=== PATIENT | female | born 1960 | race Caucasian/White ===

== ENCOUNTER → 2017-01-06 | Outpatient (CLI) | payer OTHER ==
--- NOTE | 2017-01-06 18:25 | DX ---
Right Hand - Three Views Indication: Pain and lump at base of thumb. Recent trauma. Technique: AP, oblique, and lateral views. Comparison: None. Findings: The trapezium at the base of the 1st metacarpal is either surgically absent or completely eroded/resorbed. The base of the 1st metacarpal articulates with the radial margin of the trapezoid bone. Minimal erosive arthropathy is present at the joint articulation. The distal navicular bone h as minimal erosive arthropathy at the articulation with the trapezoid (best demonstrated on the navic ular view). The metacarpal and radiocarpal joint spaces are relatively well preserved. Minimal oste oarthritis involves the distal interphalangeal joints. Impression: 1. No fracture or bone lesion. 2. Suspect surgically absent trapezium bone rather than bony resorption. 3. Minimal mixed erosive and productive arthropathy at the base of the 1st metacarpal raises the pos sibility of erosive osteoarthritis. 4. No involvement of the metacarpophalangeal joints to suggest rheumatoid arthropathy.
== END ==
LOC: CIMAGING 14:32
PROVIDERS: ATTEND Internal Medicine
DX: M79.644 Pain in right finger(s) (principal)
CPT/HCPCS: 73130-PO

== ENCOUNTER → 2017-07-12 | Outpatient (CLI) | payer OTHER | LOC: FIMAGING 17:06 | PROVIDERS: ATTEND Internal Medicine | DX: R05 Cough (principal) ==

== ENCOUNTER → 2017-07-28 | Outpatient (CLI) | payer OTHER | LOC: FIMAGING 08:14 | PROVIDERS: ATTEND Podiatrist | DX: M76.62 Achilles tendinitis, left leg (principal) ==

== ENCOUNTER 2018-11-17 11:31 | Inpatient (IN) | payer OTHER ==
[2018-11-17] MEDS ORDERED: NS 1,000 ML IV ONE (12:02)
[2018-11-17] MEDS ORDERED: PANTOPRAZOLE SODIUM 40 MG VIAL IVP ONE (12:02)
[2018-11-17] MEDS ORDERED: FAMOTIDINE 20 MG/NACL 50 ML IV ONE (12:02)
--- NOTE | 2018-11-17 12:18 | EDPHY ---
H & P Stated Complaint: Black tarry stool starting yesterday Time Seen by Provider: 11/17/18 11:46 HPI/ROS: CHIEF COMPLAINT: "I have blood in my stool" HISTORY OF PRESENT ILLNESS: 58-year-old female with no anticoagulant use, postoperative day 12 post left rotator cuff surgery [facility], no history of chronic NSAID use, has been experiencing black tarry stool for the past 48 hr. No abdominal pain. No lightheadedness. No syncope or near syncope. No back or flank pain. No postoperative DVT prophylaxis. Patient has been on numerous rounds of antibiotics recently for upper respiratory infection and Bartholin cyst. No current antibiotic treatment. History of esophageal reflux. No chronic PPI use. PRIMARY CARE PROVIDER: REVIEW OF SYSTEMS: 10 systems reviewed and negative with the exception of the elements mentioned in the history of present illness PAST MEDICAL & SURGICAL HISTORY: Postoperative day 12 post left rotator cuff surgery [facility] SOCIAL HISTORY: PHYSICAL EXAM (Prior to examination, patient consented to physical exam, hands were washed and my usual and customary physical exam procedures followed) 1) GENERAL: Well-developed, well-nourished, alert and oriented. Appears to be in no acute distress. 2) HEAD: Normocephalic, atraumatic 3) HEENT: Pupils equal, round, reactive to light bilaterally. Sclera anicteric. Nasopharynx, oropharynx, clear, no lesions. Dry mucous membranes. 4) NECK: Full range of motion, no meningeal signs. 5) LUNGS: Clear auscultation bilaterally, no wheezes, no rhonchi, no retractions. 6) HEART: Regular rate and rhythm, no murmur, no heave, no gallop. 7) ABDOMEN: No guarding, no rebound, no focal tenderness, negative McBurney's, negative Reina's, negative Rovsing's, negative peritoneal sign. Patient is a stool sample at bedside which is frankly melanic 8) MUSCULOSKELETAL: Moving all extremities, no focal areas of tenderness, no obvious trauma. No peripheral edema or discoloration. 9) BACK: No CVA tenderness, no midline vertebral tenderness, no fluctuance, no step-off, no obvious trauma, no visual or palpable abnormality. 10) SKIN: No rash, no petechiae. [11) DIFFERENTIAL DIAGNOSIS: In no particular order including but limited to upper GI bleed, lower GI bleed, factitious GI bleed - Personal History Tetanus Vaccine Date: within 10 years - Medical/Surgical History Hx Asthma: No Hx Chronic Respiratory Disease: No Hx Diabetes: No Hx Cardiac Disease: No Hx Renal Disease: No Hx Cirrhosis: No Hx Alcoholism: No Hx HIV/AIDS: No Hx Splenectomy or Spleen Trauma: No Other PMH: anxiety,hyperlipidemia, fibromyalgia, breast reduction surgery, osteoporosis, anh cyst removed 09/13 with cellulitus, R shoulder surgery - Social History Smoking Status: Never smoked Constitutional: Initial Vital Signs Temperature (C) 36.7 C 11/17/18 11:37 Heart Rate 91 11/17/18 11:37 Respiratory Rate 20 11/17/18 11:37 Blood Pressure 127/83 H 11/17/18 11:37 O2 Sat (%) 100 11/17/18 11:37 O2 Delivery Mode Room Air Allergies/Adverse Reactions: Cephalosporins Allergy (Intermediate, Verified 08/06/16 12:51) Rash clindamycin Allergy (Intermediate, Verified 08/06/16 12:51) Itching nitrofurantoin macrocrystalline [From Macrodantin] Allergy (Intermediate, Verified 08/06/16 12:51) Rash Sulfa (Sulfonamide Antibiotics) Allergy (Intermediate, Verified 08/06/16 12:51) Rash Home Medications: Medication Instructions Recorded Acetaminophen [Tylenol ES 500 mg 1,000 mg PO Q6 11/17/18 (*)] Cholecalciferol Vit D3 [Vitamin D3 1,000 units PO HS 11/17/18 (*)] Citalopram [CeleXA] 20 mg PO HS 11/17/18 Herbals/Supplements -Info Only 1 ea PO HS 11/17/18 Multivitamins [Multivitamin (*)] 1 each PO HS 11/17/18 Promethazine HCl [Phenergan 25mg 25 mg PO HS 11/17/18 (*)] Ranitidine HCl 150 mg PO BID 11/17/18 Rosuvastatin Calcium [Rosuvastatin 10 mg PO HS 11/17/18 Calcium] Medical Decision Making ED Course/Re-evaluation: 12:20 p.m.: Discussed case with Dr. Elliott Ferguson in the ER, secondary supine position. Patient is hemodynamically stable. Will plan on admission for GI bleed. 12:30 p.m.: Consultation Dr. Bills will admit patient for GI bleed - Data Points Laboratory Results: Laboratory Results 11/17/18 12:00 11/17/18 12:00 11/17/18 11/17/18 11/17/18 12:00 12:00 12:00 WBC RBC Hgb Hct MCV MCH MCHC RDW Plt Count MPV Neut % (Auto) Lymph % (Auto) [place] % (Auto) Eos % (Auto) Baso % (Auto) Nucleat RBC Rel Count Absolute Neuts (auto) Absolute Lymphs (auto) Absolute Monos (auto) Absolute Eos (auto) Absolute Basos (auto) Absolute Nucleated RBC Immature Gran % Immature Gran # PT INR APTT Sodium 138 mEq/L mEq/L (135-145) Potassium 4.5 mEq/L mEq/L (3.5-5.2) Chloride 108 mEq/L mEq/L (97-110) Carbon Dioxide 21 mEq/l L mEq/l (22-31) Anion Gap 9 mEq/L mEq/L (6-14) BUN 26 mg/dL H mg/dL (7-23) Creatinine 0.6 mg/dL mg/dL (0.6-1.0) Estimated GFR > 60 Glucose 105 mg/dL H mg/dL (70-100) Calcium 9.5 mg/dL mg/dL (8.5-10.4) Total Bilirubin 0.3 mg/dL mg/dL (0.1-1.4) Conjugated Bilirubin 0.1 mg/dL mg/dL (0.0-0.5) Unconjugated Bilirubin 0.2 mg/dL mg/dL (0.0-1.1) AST 17 IU/L IU/L (14-46) ALT 23 IU/L IU/L (9-52) Alkaline Phosphatase 73 IU/L IU/L (38-126) Total Protein 6.8 g/dL g/dL (6.3-8.2) Albumin 4.1 g/dL g/dL (3.5-5.0) Lipase 168 IU/L IU/L (23-300) Stool Occult Bld Scrn POSITIVE H (NEGATIVE) Patient ABO/Rh A NEGATIVE Antibody Screen NEGATIVE 11/17/18 11/17/18 12:00 12:00 WBC 12.47 10^3/uL H 10^3/uL (3.80-9.50) RBC 4.10 10^6/uL L 10^6/uL (4.18-5.33) Hgb 12.1 g/dL L g/dL (12.6-16.3) Hct 35.6 % L % (38.0-47.0) MCV 86.8 fL fL (81.5-99.8) MCH 29.5 pg pg (27.9-34.1) MCHC 34.0 g/dL g/dL (32.4-36.7) RDW 12.6 % % (11.5-15.2) Plt Count 401 10^3/uL H 10^3/uL (150-400) MPV 10.4 fL fL (8.7-11.7) Neut % (Auto) 76.2 % H % (39.3-74.2) Lymph % (Auto) 14.8 % L % (15.0-45.0) [place] % (Auto) 7.1 % % (4.5-13.0) Eos % (Auto) 1.2 % % (0.6-7.6) Baso % (Auto) 0.2 % L % (0.3-1.7) Nucleat RBC Rel Count 0.0 % % (0.0-0.2) Absolute Neuts (auto) 9.50 10^3/uL H 10^3/uL (1.70-6.50) Absolute Lymphs (auto) 1.85 10^3/uL 10^3/uL (1.00-3.00) Absolute Monos (auto) 0.89 10^3/uL H 10^3/uL (0.30-0.80) Absolute Eos (auto) 0.15 10^3/uL 10^3/uL (0.03-0.40) Absolute Basos (auto) 0.02 10^3/uL 10^3/uL (0.02-0.10) Absolute Nucleated RBC 0.00 10^3/uL 10^3/uL (0-0.01) Immature Gran % 0.5 % % (0.0-1.1) Immature Gran # 0.06 10^3/uL 10^3/uL (0.00-0.10) PT 12.3 SEC SEC (12.0-15.0) INR 0.89 (0.83-1.16) APTT 25.9 SEC SEC (23.0-38.0) Sodium Potassium Chloride Carbon Dioxide Anion Gap BUN Creatinine Estimated GFR Glucose Calcium Total Bilirubin Conjugated Bilirubin Unconjugated Bilirubin AST ALT Alkaline Phosphatase Total Protein Albumin Lipase Stool Occult Bld Scrn Patient ABO/Rh Antibody Screen Medications Given: Sodium Chloride (Ns) 1,000 mls @ 100 mls/hr IV CONT MARIUM Stop: 05/16/19 12:59 Last Admin: 11/17/18 14:03 Dose: 1,000 mls Discontinued Medications Sodium Chloride (Ns) 1,000 mls @ 0 mls/hr IV EDNOW ONE; Wide Open PRN Reason: Protocol Stop: 11/17/18 12:03 Last Admin: 11/17/18 12:11 Dose: 1,000 mls Famotidine/Sodium Chloride (Pepcid 20 Mg (Premix)) 50 mls @ 200 mls/hr IV EDNOW ONE Stop: 11/17/18 12:16 Last Admin: 11/17/18 12:11 Dose: Not Given Pantoprazole Sodium (Protonix) 80 mg IVP EDNOW ONE Stop: 11/17/18 12:03 Last Admin: 11/17/18 12:11 Dose: 80 mg Departure - Departure Disposition: [facility] Acute
[2018-11-17 12:20] LABS: PLATELET COUNT 401 10^3/uL (150-400)
[2018-11-17 12:28] LABS: INR 0.89 (0.83-1.16); PROTIME(PATIENT) 12.3 SEC (12.0-15.0)
[2018-11-17] MEDS ORDERED: ONDANSETRON DISINTEGRATING 4 MG TAB PO PRN (12:59)
[2018-11-17] MEDS ORDERED: ACETAMINOPHEN 325 MG TAB PO PRN (12:59)
[2018-11-17] MEDS ORDERED: ONDANSETRON 4 MG/2 ML VIAL IVP PRN (12:59)
[2018-11-17] MEDS: NS 1,000 ML IV SCH (14:03)
--- NOTE | 2018-11-17 14:27 | GHP ---
DATE OF ADMISSION: 11/17/2018 CHIEF COMPLAINT: Black tarry stools. HISTORY OF PRESENT ILLNESS: 58-year-old female with a history of IBS presents with 2 episodes of koki ck tarry stools. One was last night. She presented to the ED today, when had another episode. She had plans for an outpatient upper and lower endoscopy with Dr. Connell due to irritable bowel syndrome a s well as a small amount of blood in her stool that was likely associated with hemorrhoids. Notably, she had a shoulder surgery about 10 days ago, although she has not taken significant NSAIDs since . She tells me she took 1 dose of ibuprofen; otherwise, she has been taking Tylenol. She did have a nerve block in for a few days. She has had a few rounds of antibiotics recently which have given her somewhat significant diarrhea. Recently, her bowels have been almost back to normal. Although a fter surgery, she had some perioperative nausea and vomiting, she did not have any hematemesis with t his and she has not vomited for 3 or 4 days now. Her last upper and lower endoscopies were about 18 years ago. She was never told that she had ulcers. She did have some polyps in her colon. PAST MEDICAL/SURGICAL HISTORY: 1. Hyperlipidemia. 2. Depression. 3. IBS. 4. GERD, for which she takes ranitidine. MEDICATIONS: Please see medication reconciliation. ALLERGIES: Cephalosporins, clindamycin, Macrobid, sulfa. SOCIAL HISTORY: She drinks alcohol occasionally. She does not smoke. FAMILY HISTORY: Notable for IBS in her brother. REVIEW OF SYSTEMS: A 10-point review of systems is conducted and is negative except per HPI. PHYSICAL EXAM: VITAL SIGNS: Blood pressure 109/78, heart rate 74, respiration rate 18, saturating 9 9% on room air, temperature 36.7. GENERAL: The patient is a pleasant female who is resting comforta analy in bed. She appears somewhat anxious. HEENT: Shows her to be normocephalic, atraumatic. CARDI OVASCULAR: Shows a regular rate and rhythm. No murmurs, rubs or gallops. PULMONARY: Shows lungs c lear to auscultation bilaterally. ABDOMEN: Soft, nontender, nondistended. SKIN: Shows no rash. G U: Shows no Alcaraz. NEUROLOGIC: Shows her to be alert and oriented x3. She is moving all extremitie s. PSYCHIATRIC: Shows a normal mood and affect. MUSCULOSKELETAL: Shows her left arm to be in a sl ing. LABS: White count is 12.4, hemoglobin is 12, platelets are 400. INR 0.89. Bicarb is 21, BUN is 26 with creatinine of 0.6. LFTs are normal. Her FOBT is positive. DATA: Discussed with Bharat Fabian as well as Dr. Connell. Will admit to med/surg. Plan on upper endos copy tomorrow IMPRESSION AND PLAN: 1. Upper gastrointestinal bleed: She has had melena. She is hemodynamically stable. Will provide her with intravenous Protonix. I have discussed with Dr. Connell, will plan on an esophagogastroduodeno scopy tomorrow. Give her clears now, make her nothing by mouth after midnight. This is a high-risk diagnosis. 2. Recent shoulder surgery: She is in a sling. Continue this. 3. Hyperlipidemia: Statin. 4. Depression: Celexa. 5. Irritable bowel syndrome. /[id number]/MODL
[2018-11-17] MEDS: ACETAMINOPHEN 500 MG TAB PO SCH ×2 (17:50→20:15)
[2018-11-17] MEDS ORDERED: PEG 3350/NA SULF,BICARB,CL/KCL (GAVILYTE-G) 4000 ML BTL PO ONE (19:24)
[2018-11-17] MEDS: PROMETHAZINE HCL 25 MG TAB PO SCH (19:57)
[2018-11-17] MEDS: PANTOPRAZOLE SODIUM 40 MG VIAL IVP SCH (20:00)
[2018-11-17] MEDS: ROSUVASTATIN CALCIUM 10 MG TAB PO SCH (20:04)
[2018-11-17] MEDS: CITALOPRAM 20 MG TAB PO SCH (20:04)
[2018-11-17] MEDS ORDERED: PANTOPRAZOLE SODIUM 40 MG VIAL IVP SCH (21:00)
[2018-11-18] MEDS: PANTOPRAZOLE SODIUM 40 MG VIAL IVP SCH ×2 (00:57→06:54)
[2018-11-18] MEDS: NS 1,000 ML IV SCH (01:02)
[2018-11-18 05:18] LABS: PLATELET COUNT 304 10^3/uL (150-400)
[2018-11-18] MEDS ORDERED: LR 1,000 ML IV ONE (08:28)
[2018-11-18] MEDS ORDERED: MIDAZOLAM 2 MG/2 ML VIAL ONE ×3 (08:46→09:51)
[2018-11-18] MEDS ORDERED: fentaNYL 100 MCG/2 ML INJ ONE ×2 (08:46→09:52)
--- NOTE | 2018-11-18 09:15 | PDPROPOC ---
Sedation Plan of Care Sedation Plan of Care: mental status noted ASA Classification: ASA 2 Planned drugs: fentanyl, midazolam Mallampati Score: Class 1 Mallampati Reference Image: Patient passed 3-3-2 rule?: Yes
--- NOTE | 2018-11-18 10:42 | GIREPORT ---
[facility] - Endoscopy Department Patient Name: Isabell Ta Procedure Date: 11/18/2018 8:49 AM Patient Type: Inpatient Attending MD/ ER Physician: Quinton Connell MD Procedure: Upper GI endoscopy Indications: Note dictated, consult appreciated. Lucinda. Providers: Quinton Connell MD, FACG Referring MD: [facility] Hospitalist service; Zaida Samuel DO Medicines: Fentanyl 250 micrograms IV, Midazolam 9 mg IV Complications: No immediate complications. Description of Procedure: After obtaining informed consent, the endoscope was passed under direct vision. Throughout the procedure, the patient's blood pressure, pulse, and oxygen saturations were monitored continuously. The Endoscope was intro duced through the mouth, and advanced to the second part of duodenum. Findings: The esophagus was normal. The entire examined stomach was normal. Biopsies were taken with a cold forceps for Helicobacter pylori testing from the antrum and cardia. One non-bleeding superficial duodenal ulcer with a small protuberance w as found in the duodenal bulb. The lesion was 13 mm in largest dimension, with some "heaped-up" nodular tissue. Coagulation for bleeding prevention us ing bipolar probe was successful. One ligature was successfully placed. The re was no bleeding at the end of the procedure. Biopsies were taken with a cold forceps for histology from the surrounding nodular tissue. Estimated Blood Loss: none. Post Op Diagnosis: - Duodenal ulcer, as above. No further bleeding, and with the above treatment, no risk of rebleed. Overall, suspect either a "stress" ulcer from recent surgery, etc., or H. pylori. Recommendation: - feed - buffcap IV - less frequent H/Hs - change PPI to oral bid - if stable tomorrow, as I suspect, ok to d/c home. Upon discharge, recommend: a) PPI daily for eight weeks b) iron replacement therapy x 8 weeks c) f/u PCP I will sign off; I will f/u on bxs, H. pylori. Otherwise, please call i f we can be of further help [phone]). Thank you for allowing me to help in the management of this patient. Attending Participation: I personally performed the entire procedure. Becki Alcantara MD Quinton Connell MD 11/18/2018 10:41:59 AM This report has been signed electronicallyPeter MD Becki Number of Addenda: 0 Note Initiated On: 11/18/2018 8:49 AM [email or web address]
--- NOTE | 2018-11-18 10:45 | GIREPORT ---
[facility] Surgical Services - Endoscopy Department Patient Name: Isabell Ta Procedure Date: 11/18/2018 8:49 AM Patient Type: Inpatient Attending MD/ ER Physician: Quinton Connell MD Procedure: Colonoscopy Indications: Screening for colorectal malignant neoplasm Providers: Quinton Connell MD, [facility] Referring MD: Zaida Samuel DO Medicines: See the other procedure note for documentation of the administered medications Complications: No immediate complications. Description of Procedure: After obtaining informed consent, the scope was passed under direct vis ion. Throughout the procedure, the patient's blood pressure, pulse, and oxyg en saturations were monitored continuously. The Colonoscope was introduced through the anus and advanced to the terminal ileum. The terminal ileum was photographed. The quality of the bowel preparation was good. Findings: The terminal ileum contained one submucosal nodule, 9 mm in diameter. Biopsies were taken with a cold forceps for histology. The entire examined colon appeared normal. Estimated Blood Loss: Estimated blood loss: none. Post Op Diagnosis: - As above. Recommendation: - Pathology results pending. - Repeat colonoscopy in 10 years for screening purposes. - Thank you for allowing me to help in the management of this patient. Attending Participation: I personally performed the entire procedure. Becki Alcantara MD Quinton Connell MD 11/18/2018 10:45:05 AM This report has been signed electronicallyPeter MD Becki Number of Addenda: 0 Note Initiated On: 11/18/2018 8:49 AM Total Procedure Duration Time 0 hours 16 minutes 57 seconds [email or web address]
[2018-11-18] MEDS: PANTOPRAZOLE SODIUM 40 MG TAB PO SCH ×4 (11:23→22:00)
--- NOTE | 2018-11-18 11:31 | GCON ---
GASTROINTESTINAL INPATIENT CONSULTATION. DATE OF CONSULTATION: 11/18/2018 REFERRING PHYSICIAN: Dereck Bills MD HISTORY OF PRESENT ILLNESS: I was kindly requested to see the patient by Dr. Dereck Bills in consultation for chief complaint of melena. She is a 58- year-old white female who had 3 episodes of the above. She had shoulder surgery about 11 days ago, but states she only took 1 ibuprofen. She has been generally using Tylenol. She had a nerve block several days ago. After surgery , she did have some nausea and vomiting, but denies hematemesis. She does have a chronic history of "stomach churning." She denies heartburn. She is due for screening colonoscopy. She denies constipation, maroon stool, weight loss. PAST MEDICAL HISTORY: 1. As above. 2. Elevated lipids. 3. Depression. 4. Irritable bowel syndrome. Otherwise, noncontributory. INPATIENT MEDICATIONS: Include pantoprazole IV, statin, promethazine before bed , IV fluids, Celexa. ALLERGIES: Include cephalosporins, clindamycin, Macrobid, and sulfa. SOCIAL HISTORY: She drinks alcohol only occasionally. She is here with Roman, cell phone #[phone]. FAMILY HISTORY: Negative for similar bleeding. REVIEW OF SYSTEMS: Positive pertinent review of systems as per my HPI. Otherwise, complete review of systems is negative. PHYSICAL EXAM: CONSTITUTIONAL: Nontoxic-appearing. VITAL SIGNS: Stable. SKIN: Warm, dry. EYES: Pupils equal, round, reactive to light and accommodation. EARS/NOSE/MOUTH/Throat: Oropharynx without masses, moist mucosa. CARDIOVASCULAR: Normal S2, normal PMI. RESPIRATORY: Lungs clear to auscultation and percussion anteriorly. GASTROINTESTINAL: Nontender, soft. NEUROLOGIC: Grossly nonfocal. Cranial nerves grossly intact. PSYCHIATRIC: Orientation, insight appropriate. MUSCULOSKELETAL: Strength grossly normal throughout. Normal station. LABORATORY DATA: Normal coags. Hematocrit initially 35.6%, then 24.5%, then 28.9%, and now 26.1%. Normal platelet count. Normal CMP. Normal lipase. ASSESSMENT: Melena, with drop in hematocrit. I suspect an upper gastrointestinal source of bleeding. A right colonic source is possible, but less likely. With her more chronic symptoms of dyspepsia, Helicobacter pylori is possible. PLAN: 1. Urgent upper endoscopy, colonoscopy. Certainly with her elevated lipids, recent shoulder surgery, etc., she is at increased risk for these procedures; however, suspected benefits outweigh the risks, and I suspect she will do well. 2. Further management depending on the above. Thank you for allowing me to help in the care of this patient. /[id number]/MODL MTDD
--- NOTE | 2018-11-18 12:13 | HOSPPROG ---
Hospitalist Progress Note Assessment/Plan: # UGIB d/t duodenal ulcer s/p coagulation and ligature - PPI daily - biopsy pending # terminal ileum nodule - biopsy pending # ABLA - recheck hgb tonight and tomorrow am - Fe supplementation on dc # recent shoulder surgery - continue sling # insomnia - patient requesting trazodone; she requested an rx for home if this works, i deferred this today # depression - celexa # hld - statin # dvt ppx - SCDs Subjective: s/p EGD and colonoscopy; eating today Objective: Vital Signs Temp Pulse Resp BP Pulse Ox 36.7 C 84 16 136/74 H 96 11/18/18 10:55 11/18/18 10:55 11/18/18 10:55 11/18/18 10:55 11/18/18 10:55 Laboratory Results 11/18/18 04:13 11/18/18 04:30 11/17/18 11/18/18 11/19/18 05:59 05:59 05:59 Intake Total 1763 450 Balance 1763 450 PT 12.3 SEC (12.0-15.0) 11/17/18 12:00 INR 0.89 (0.83-1.16) 11/17/18 12:00 high risk with significant blood loss - Physical Exam Constitutional: no apparent distress, appears nourished Cardiovascular: regular rate and rhythym, no murmur, rub, or gallop Respiratory: no respiratory distress, no rales or rhonchi, clear to auscultation Gastrointestinal: normoactive bowel sounds, soft, non-tender abdomen, no palpable masses ICD10 Worksheet Patient Problems: Problems Problem Status Onset Duodenal ulcer Acute Duodenal ulcer Acute
[2018-11-18] MEDS: ACETAMINOPHEN 500 MG TAB PO SCH ×2 (12:40→17:53)
--- NOTE | 2018-11-18 13:34 | PDMN ---
Medical Necessity Medical necessity: Change to inpt as of 11/18/18 @ 12:14 per MD order and MCG M- 180, Gastrointestinal Bleeding, Upper, A-2 days. 58 y/o admitted w/upper GI bleed, EGD today showed duodenal ulcer s/p coagulation and ligature- bx pending , colonoscopy showed ileum nodule- bx pending. Upgraded to inpt for decreasing H &H (12.1, 35.6 yesterday and 8.9, 26.1 today) further monitoring med nec, high risk w/signif blood loss, est LOS>2MN for ongoing eval/management of above.
--- NOTE | 2018-11-18 15:53 | ASMTCMCOM ---
CM Note CM Note Notes: Case Management Chart Review for Discharge Support: Patient is 58 y/o female, presented to [facility] ED with 2 episodes of black tarry stools, admitted under observation. Pt underwent L rotator cuff surgery 12 days ago. Plan for endoscopy and colonoscopy today. CM to follow. D/C Plan: TBD, likely independent. Date Signed: 11/18/2018 03:52 PM Electronically Signed By:Celeste Grimaldo
[2018-11-18] MEDS ORDERED: traZODone 50 MG TAB PO SCH (21:00)
[2018-11-18] MEDS: CITALOPRAM 20 MG TAB PO SCH (22:00)
[2018-11-18] MEDS: ROSUVASTATIN CALCIUM 10 MG TAB PO SCH (22:00)
[2018-11-18] MEDS: PROMETHAZINE HCL 25 MG TAB PO SCH (22:01)
[2018-11-19] MEDS: ACETAMINOPHEN 500 MG TAB PO SCH ×2 (01:06→07:21)
[2018-11-19 07:27] VITALS: BP 120/73
[2018-11-19] MEDS: PANTOPRAZOLE SODIUM 40 MG TAB PO SCH (08:17)
[2018-11-19] MEDS ORDERED: SODIUM FERRIC GLUCONAT/SUCROSE 125 MG in NS 100 ML IV ONE (08:47)
--- NOTE | 2018-11-19 08:59 | HOSPPROG ---
Hospitalist Progress Note Assessment/Plan: 58 yo F w UGIB # UGIB d/t duodenal ulcer s/p coagulation and ligature - PPI daily - biopsy pending # terminal ileum nodule - biopsy pending # ABLA - recheck hgb tonight and tomorrow am - Fe supplementation on dc # recent shoulder surgery - continue sling # insomnia - patient requesting trazodone; she requested an rx for home if this works, i deferred this today # depression - celexa # hld - statin # dvt ppx - SCDs home today > 30 minutes Subjective: brown stool this AM. hct stable Objective: Vital Signs Temp Pulse Resp BP Pulse Ox 36.5 C 88 16 120/73 96 11/19/18 07:22 11/19/18 07:22 11/19/18 07:22 11/19/18 07:22 11/19/18 07:22 Laboratory Results 11/19/18 08:00 PT 12.3 SEC (12.0-15.0) 11/17/18 12:00 INR 0.89 (0.83-1.16) 11/17/18 12:00 - Physical Exam Constitutional: no apparent distress, appears nourished Eyes: PERRL, anicteric sclera Ears, Nose, Mouth, Throat: moist mucous membranes, hearing normal Cardiovascular: regular rate and rhythym, no murmur, rub, or gallop Respiratory: no respiratory distress, no rales or rhonchi Gastrointestinal: normoactive bowel sounds, soft, non-tender abdomen Genitourinary: No morillo in urethra Skin: warm, normal color Musculoskeletal: full muscle strength ICD10 Worksheet Patient Problems: Problems Problem Status Onset Duodenal ulcer Acute Duodenal ulcer Acute
--- NOTE | 2018-11-19 10:09 | GDS ---
DISCHARGE DIAGNOSES: 1. Upper gastrointestinal bleed secondary to duodenal ulcer. 2. Acute blood loss anemia. 3. Recent shoulder surgery. Please see admission history and physical by Dr. Allen Bills. Patient presented with melena. She i s status post coagulation ligature. Hematocrit stable at 9.9, it was 12 on presentation, her baselin e is 14. This is consistent with acute blood loss anemia. The patient is discharged home on b.i.d. PPI for 2 months, oral iron. She was given a prescription for trazodone if it helps her sleep which has been poor with her recent shoulder surgery. She received IV iron while here. /[id number]/MODL
--- NOTE | 2018-11-23 14:46 | PQFORM ---
PHYSICIAN QUERY FORM Needs Your Response This query form is being sent to you to assure this patient record is coded properly. Please respond to the question below: DEPUTY MANAGER QUESTION: Dr. Al, The diagnosis of Well-Differentiated Neuroendocrine Tumor (Carcinoid Tumor) is included in the Pathology Report dated 11/22/2018 ~ Would this be appropriate as an additional diagnosis on the discharge summary? Yes X No Other Clinically Undetermined Many thanks, MAYELIN Johns HIM/Coding Department INSTRUCTIONS FOR RESPONSE: Answer question by clicking on the "Edit Document" button. Move cursor to area below the stars. When complete, hit "Save." Click on the "Sign" button, then click "Sign" again. Type in your PIN and hit "Enter." MTDD
== END 2018-11-19 12:17 | disposition home or self-care (01) | DRG 378 ==
LOC: F3E 12:58 → OBSVTOIN 11-18 12:14
PROVIDERS: ADMIT Student in an Organized Health Care Education/Training Program; ATTEND Internal Medicine
DX: K26.0 Acute duodenal ulcer with hemorrhage (principal); D62 Acute posthemorrhagic anemia; C7A.012 Malignant carcinoid tumor of the ileum; Z98.890 Other specified postprocedural states; M85.819 Other specified disorders of bone density and structure, unspecified shoulder; K21.9 Gastro-esophageal reflux disease without esophagitis; E78.5 Hyperlipidemia, unspecified; M79.7 Fibromyalgia; F41.9 Anxiety disorder, unspecified; K58.9 Irritable bowel syndrome, unspecified; G47.00 Insomnia, unspecified; F32.9 Major depressive disorder, single episode, unspecified; Z86.010 Personal history of colon polyps
CPT/HCPCS: 96374; G0378; J2250; J2916; J3010

== ENCOUNTER 2019-01-08 10:49 | Emergency (ER) | payer OTHER ==
[2019-01-08] MEDS ORDERED: ONDANSETRON 4 MG/2 ML VIAL IVP ONE (11:46)
[2019-01-08] MEDS ORDERED: NS 1,000 ML IV ONE (11:46)
[2019-01-08] MEDS ORDERED: FAMOTIDINE 20 MG/NACL 50 ML IV ONE (11:46)
[2019-01-08 11:56] LABS: PLATELET COUNT 315 10^3/uL (150-400)
--- NOTE | 2019-01-08 13:42 | EDPHY ---
H & P Time Seen by Provider: 01/08/19 11:46 HPI/ROS: HPI Abdominal pain. 58-year-old female by private vehicle. She had a small carcinoid tumor removed by Dr. Sal Torres on Monday of last week. She presents to the emergency department with complaint continued abdominal discomfort, nausea, loose stools, an episode of nonbilious, nonbloody vomiting yesterday and what she describes as burp vomiting a small amount of gastric contents today. She otherwise has been on a soft diet and has been tolerating this well. She spoke with Dr. Sal Torres partner Dr. Tim and was told to come into the emergency department to be evaluated. At this time she denies any significant discomfort. ROS: Constitutional: No fever, no chills. No weakness. Eyes: No discharge. No changes in vision. ENT: No sore throat. No nasal congestion or rhinorrhea. Respiratory: No cough. No shortness of breath. Cardiac: No chest pain, no palpitations. Gastrointestinal: As above. Genitourinary: No hematuria. No dysuria or increased frequency with urination. Musculoskeletal: No back pain. No neck pain. No myalgias or arthralgias. Skin: No rashes. Neurological: No headache. No focal weakness or altered sensation. Past medical history: Anxiety, hyperlipidemia, fibromyalgia, breast reduction surgery, osteoporosis, right shoulder surgery. As above. Social history: Physical Exam: General Appearance: Alert, no distress. This patient is responding to questions appropriately and in full sentences. This patient appears well- hydrated and well-nourished. Eyes: Pupils equal and round no pallor or injection. No lid edema, erythema or injection. Respiratory: There are no retractions, lungs are clear to auscultation with good air movement bilaterally. Cardiovascular: Regular rate and rhythm. No murmur. Gastrointestinal: Abdomen is soft and nontender, no masses, bowel sounds normal. No focal tenderness at McBurney's point. No Reina sign. Her surgical incisions appear clean dry and intact and without evidence of infection. Neurological: Motor sensory function is grossly intact. Cranial nerves are normal. Gait is normal. Skin: Warm and dry, no rashes. Musculoskeletal: Neck is supple and nontender. Extremities are symmetrical. All joints range without pain or impingement. Psychiatric: No agitation. No depression. Database: EKG: Imaging: Procedures: Emergency department course: Triage vital signs reviewed. She is mildly hypertensive. Vital signs are otherwise unremarkable. She is afebrile. IV was placed. She was started on IV normal saline with 1 L to be given over the next 1-2 hours. She was given 4 mg of IV Zofran and 20 mg of IV Pepcid initially. 1:40 p.m., the patient was re-evaluated, she is resting comfortably at this time. Her is in the room. I discussed the results of her blood work with her and her . Repeat abdominal exam at this time she is soft, nontender nondistended. At this time I feel she is safe for discharge to home with her with precautions. She feels comfortable with this plan. She can easily return to the emergency department if needed. I will prescribe her a combination of Lyndon, Phenergan and Zofran. Follow-up and return to emergency department precautions were thoroughly reviewed with her and her . All of their questions were answered. The patient was discharged in good condition with her . Differential Diagnosis: The differential diagnosis on this patient includes but is not limited to postsurgical pain and nausea. Bowel obstruction, postsurgical infection, other acute emergent surgical condition unlikely. This represents a partial list of diagnoses considered. These considerations are based on history, physical exam , past history, reassessment and diagnostic testing. Smoking Status: Never smoked Constitutional: Initial Vital Signs Temperature (C) 36.9 C 01/08/19 11:01 Heart Rate 96 01/08/19 11:01 Respiratory Rate 19 01/08/19 11:01 Blood Pressure 147/109 H 01/08/19 11:01 O2 Sat (%) 96 01/08/19 11:01 O2 Delivery Mode Room Air Allergies/Adverse Reactions: Cephalosporins Allergy (Intermediate, Verified 08/06/16 12:51) Rash clindamycin Allergy (Intermediate, Verified 08/06/16 12:51) Itching nitrofurantoin macrocrystalline [From Macrodantin] Allergy (Intermediate, Verified 08/06/16 12:51) Rash Sulfa (Sulfonamide Antibiotics) Allergy (Intermediate, Verified 08/06/16 12:51) Rash levofloxacin [From Levaquin] Allergy (Verified 01/01/19 10:14) Other-Enter Comments Home Medications: Medication Instructions Recorded Cholecalciferol Vit D3 [Vitamin D3 1,000 units PO HS 11/17/18 (*)] Citalopram [CeleXA 20 MG] 20 mg PO HS 11/17/18 Herbals/Supplements -Info Only 1 ea PO HS 11/17/18 Rosuvastatin Calcium 10 mg PO HS 11/17/18 Pantoprazole Sodium [Protonix 40mg 40 mg PO BID #60 tab 11/19/18 (*)] Acetaminophen [Tylenol ES 500 mg 1,000 mg PO HS 01/01/19 (*)] Carboxymethylcellulose 1% [Refresh 1 drop EACHEYE DAILY PRN 01/01/19 Celluvisc (*)] Melatonin [Melatonin 3 MG (*)] 3 mg PO HS 01/01/19 Montelukast Sodium [Singulair 10 10 mg PO DAILY@1800 PRN 01/01/19 mg (*)] Multivitamins [Multivitamin (*)] 1 each PO DAILY 01/01/19 [place]-3 Fatty Acids [Fish Oil 1000 1,000 mg PO DAILY 01/01/19 mg (*)] Ferrous Sulfate [Ferrous Sulf 325 325 mg PO DAILY 01/03/19 MG (*)] Promethazine HCl [Phenergan 25mg 25 mg PO DAILY PRN 01/04/19 (*)] Ketorolac Tromethamine [Toradol 1 tab PO Q6 5 Days tab 01/06/19 10mg tab] Hydrocodone/APAP 5/325 [Lyndon 1 - 2 tab PO Q4-6PRN PRN #14 tab 01/08/19 5/325 (*)] Ondansetron Odt [Zofran Odt 4 mg 4 mg PO Q4PRN PRN #10 tab 01/08/19 (*)] Promethazine HCl [Phenergan 25mg 25 mg PO Q4-6PRN PRN #12 tab 01/08/19 (*)] Medical Decision Making - Data Points Laboratory Results: Laboratory Results 01/08/19 11:40 01/08/19 11:40 Medications Given: Discontinued Medications Sodium Chloride (Ns) 1,000 mls @ 0 mls/hr IV EDNOW ONE; Wide Open PRN Reason: Protocol Stop: 01/08/19 11:47 Last Admin: 01/08/19 11:55 Dose: 1,000 mls Famotidine/Sodium Chloride (Pepcid 20 Mg (Premix)) 50 mls @ 200 mls/hr IV EDNOW ONE Stop: 01/08/19 12:00 Last Admin: 01/08/19 11:55 Dose: 50 mls Ondansetron HCl (Zofran) 4 mg IVP EDNOW ONE Stop: 01/08/19 11:47 Last Admin: 01/08/19 11:56 Dose: 4 mg Departure - Departure Disposition: Home, Routine, Self-Care Clinical Impression: History of abdominal surgery, Diarrhea, Nausea and vomiting Condition: Good Instructions: Acute Abdominal Pain (ED) Additional Instructions: Read and follow provided instructions. Follow-up with Dr. Sla Torres or Dr. Keating at least by phone tomorrow. Take medication as prescribed for pain and nausea. Return to the emergency department for worsening symptoms, worsening abdominal pain, vomiting and inability to keep fluids down despite medications, blood in your stool or other serious concerns. Referrals: Hamzah Keating MD [Medical Doctor] - As per Instructions Prescriptions: Hydrocodone/APAP 5/325 [Lyndon 5/325 (*)] 1 - 2 tab PO Q4-6PRN PRN #14 tab PRN Reason: Pain, Moderate Ondansetron Odt [Zofran Odt 4 mg (*)] 4 mg PO Q4PRN PRN #10 tab PRN Reason: For Nausea & Vomiting Promethazine HCl [Phenergan 25mg (*)] 25 mg PO Q4-6PRN PRN #12 tab PRN Reason: For Nausea & Vomiting
[2019-01-08 13:58] VITALS: BP 132/86
== END 2019-01-08 13:57 | disposition home or self-care (01) ==
DX: R11.2 Nausea with vomiting, unspecified (principal); R19.7 Diarrhea, unspecified; E86.9 Volume depletion, unspecified; M79.7 Fibromyalgia; F41.9 Anxiety disorder, unspecified; Z98.890 Other specified postprocedural states
CPT/HCPCS: 96365; J2405